=== PATIENT | male | born 1970 | race Caucasian/White ===

== ENCOUNTER 2024-04-24 13:01 | Day surgery (SDC) | payer OTHER, SELFPAY ==
[2024-04-24 13:05] VITALS: BP 140/95; PULSE 78; RESP 18; TEMP 36.3; O2SAT 97; BMI 31.7
--- NOTE | 2024-04-24 14:32 | HO.ANESPROP2 ---
HPI - Anesthesia Eval Consult details Narrative: 54 yo male patient for EGD with balloon dilatation PMFSH Active Problems Active Problems: Denies cardiac and respiratory problems Remote h/o smoking. Quit 30 yrs ago Past Medical History Medical History Kidney stones Chronic back pain History of deviated nasal septum Family History Family history of problems with anesthesia: No Surgical History Surgical History (Updated 04/24/24 @ 15:09 by Chelsie Prater MD) Status post correction of deviated nasal septum History of back surgery History of Problems with Anesthesia: No Social History Social History Patient Tobacco Use Status: Former Tobacco user Are you DNR?: No Advance Directives: No Advance Directives Information Provided: Yes Meds Allergies Allergy/AdvReac Type Severity Reaction Status Date / Time No Known Allergies Allergy Verified 04/24/24 13:19 Home Medications ?Medication ?Instructions ?Recorded ?Confirmed ?Last Taken ?Type celecoxib 200 mg capsule 200 mg PO DAILY 04/21/24 04/21/24 04/24/24 History cyclobenzaprine 5 mg tablet 5 mg PO TID PRN muscle spasm 04/21/24 04/21/24 04/24/24 History omeprazole 40 mg capsule,delayed 40 mg PO DAILY 04/24/24 04/24/24 04/24/24 History release Exam Height,Weight and Vital Signs: Height 6 ft 4 in Weight 118.115 kg Last Vital Signs Temp 97.3 F 04/24/24 13:05 Pulse 78 04/24/24 13:05 Resp 18 04/24/24 13:05 BP 140/95 H 04/24/24 13:05 Pulse Ox 97 04/24/24 13:05 O2 Del Method Room Air 04/24/24 13:05 Airway Mallampati Class: III TM Dist: >3cm Neck ROM: Full Loose/Missing/Broken Teeth: Yes (Missing tooth top right back) Heart: RRR Lungs: CTAB Assessment and Plan Assessment Anesthesia Assessment: Anesthesia Plan Discussed and Chart Reviewed Final Anesthetic Review Family History of Problems with Anesthesia: No History of Problems with Anesthesia: No NPO: Yes ASA Class: II Final Preanesthetic Review: No Changes in Pt Med Stat, Meds/Allgs Chart Reviewed, Consent Obtained/Reviewed and Anes Risks/Benef Reviewed Patient Risk: Low Procedure Risk: Low Assessment/Block/Sedation in SS: Assess/Block/Sedation-SS Anesthetic Plan Anesthetic Plan: TIVA Disposition: Standard PACU
[2024-04-24 15:39] VITALS: BP 111/64; PULSE 70; RESP 16; TEMP 36.1; O2SAT 96
--- NOTE | 2024-04-24 15:46 | P.BOP_ITS ---
Brief Operative Note Date of Service: 04/24/24 Pre-op diagnosis: Dysphagia, GERD Post-op diagnosis: other (Esophageal ring, Hiatal hernia) Procedure: EGD with 18mm to 19mm to 20mm balloon dilation, and biopsies Surgeon: Alejandro Mcgrath MD Anesthesia: MAC Was an Floral Artist used for this Procedure?: No Estimated blood loss (mL): 2.0 Pathology: other (A. EG Junction at 39cm) Condition: stable Disposition: PACU
[2024-04-24 15:54] VITALS: BP 135/80; PULSE 65; RESP 14; O2SAT 97
[2024-04-24 16:09] VITALS: BP 139/88; PULSE 70; RESP 15; TEMP 36.3; O2SAT 99
--- NOTE | 2024-04-25 02:38 | OP_ITS ---
DATE OF SERVICE: 04/24/2024 SURGEON: Alejandro Mcgrath MD INDICATIONS: The patient presents for evaluation of dysphagia, gastroesophageal reflux, and abnormal barium swallow. Full consent has been obtained from him for this, including risks of bleeding and perforation. PREOPERATIVE DIAGNOSIS: POSTOPERATIVE DIAGNOSIS: PROCEDURE PERFORMED: Esophagogastroduodenoscopy with balloon dilation of gastroesophageal junction, and biopsies. ESTIMATED BLOOD LOSS: COMPLICATIONS: ANESTHESIA: Monitored anesthesia care. ASSISTANTS: SPECIMENS: PREOPERATIVE DIAGNOSES: Gastroesophageal reflux, dysphagia, abnormal barium swallow. POSTOPERATIVE DIAGNOSES: Gastroesophageal reflux, dysphagia, abnormal barium swallow, nonobstructing distal esophageal ring, hiatal hernia, gastroesophageal reflux. DESCRIPTION OF PROCEDURE: The patient was placed in the left lateral decubitus position. The Olympus video gastroscope was passed in the posterior oropharynx and upper esophagus under direct vision. The scope was passed slowly into the distal esophagus. The gastroesophageal junction appeared at 39 cm. With insufflation of air, the gastroesophageal junction was widely patent and allowed easy passage of the scope. There did appear to be some minimal evidence of a nonobstructing esophageal ring at the level of the gastroesophageal junction. There was a small hiatal hernia. The scope was advanced to the pylorus, and the duodenum was cannulated to the descending portion. The duodenum including the bulb appeared normal without mass or ulceration. The scope was withdrawn back in the stomach. The gastric antrum and body appeared normal with good peristalsis. The scope was retroflexed visualizing the proximal stomach carefully, which appeared normal, without any sign of mass or ulceration. The scope was straightened and withdrawn back to the esophagus. I did use a [employer] incremental balloon to dilate the gastroesophageal junction from 18 mm to 19 mm to 20 mm at the recommended pressures for between 30 and 60 seconds each. The balloon itself pulled easily into and out of the stomach and there was no appreciable heme. After the dilation. I did obtain some biopsies from the EG junction as well. There was no evidence of esophagitis nor any definitive evidence of Horton mucosa. The scope was withdrawn through the remainder of the esophagus which appeared normal. There was no evidence of any proximal esophageal rings. The scope was withdrawn from the patient. He tolerated the procedure well and was returned to the recovery area in stable condition. IMPRESSION: 1. Nonobstructing distal esophageal ring, status post balloon dilation. 2. Hiatal hernia and gastroesophageal reflux. PLAN: The patient was started on omeprazole when I saw him at the end of May, and he does report that has definitely helped relieve his heartburn. He has been eating carefully, and at this point, I shall advise him to resume a normal diet and see how things are with that. I do suspect at least part of the trouble swallowing was in relation to reflux and esophageal spasm. He was advised to see me again toward the end of the year for a followup visit. At that point, we would then set up a followup screening colonoscopy. He did have a colonoscopy in [address] Marcano at [facility] with removal of only a hyperplastic polyp. However, he does have a family history of both the grandmother and uncle on his mother's side of the family with colon cancer, and his uncle was only approximately age 60. Therefore, we would proceed with a colonoscopy for screening later this year or next year rather than waiting 10 years. He was advised not to use any aspirin or NSAIDs for at least 1 week. This has been discussed with his . MD HELENA Garcia/GLORIA / [id number] MTDD
== END 2024-04-24 16:13 | disposition home or self-care (01) ==
PROVIDERS: PCP Nurse Practitioner Adult Health; Visit Provider Internal Medicine
PROC: (CPT 43245; principal; 2024-04-24 14:20)
DX: K22.2 Esophageal obstruction (principal); K44.9 Diaphragmatic hernia without obstruction or gangrene; K21.9 Gastro-esophageal reflux disease without esophagitis; R13.19 Other dysphagia; Z87.891 Personal history of nicotine dependence
CPT/HCPCS: 43245; 43239; 88305; 88313; C1726; J2704

== ENCOUNTER 2025-01-10 09:19 | Day surgery (SDC) | payer BC, SELFPAY ==
[2025-01-08 13:38] VITALS: BMI 32.5
--- NOTE | 2025-01-09 12:46 | HO.ANESPROP2 ---
Documented by User: Reva Pace NP 01/09/25 12:47 HPI - Anesthesia Eval Consult details Narrative: 54yo M for Colonoscopy s/p EGD 04/2024 with TIVA PMFSH Past Medical History Medical History Kidney stones Chronic back pain History of deviated nasal septum Family History Family history of problems with anesthesia: No Surgical History Surgical History H/O colonoscopy History of esophagogastroduodenoscopy (EGD) Status post correction of deviated nasal septum History of back surgery History of Problems with Anesthesia: No Social History Social History (Updated 01/08/25 @ 13:41 by Rhiannon Christian RN) Household Members: Spouse Do you presently have visiting nurse or other home services: No Patient Tobacco Use Status: Former Tobacco user Tobacco use type: Cigarette Use of substances other than those prescribed or required for medical reasons: No Have you been hit, kicked, punched, or otherwise hurt by someone within the past year? If so, by whom?: No Are you DNR?: No Advance Directives: No Advance Directives Information Provided: Yes Recently lost weight without trying: No Nutrition Risks: No Nutritional Risk Poor oral hygiene: No Meds Allergies Allergy/AdvReac Type Severity Reaction Status Date / Time No Known Allergies Allergy Verified 01/10/25 09:58 Home Medications ?Medication ?Instructions ?Recorded ?Confirmed ?Last Taken ?Type celecoxib 200 mg capsule 200 mg PO DAILY 04/21/24 01/08/25 04/24/24 History cyclobenzaprine 5 mg tablet 5 mg PO TID PRN muscle spasm 04/21/24 01/08/25 01/10/25 History omeprazole 40 mg capsule,delayed 40 mg PO DAILY 04/24/24 01/08/25 01/10/25 History release Exam Height,Weight and Vital Signs: Height 6 ft 3 in Weight 117.934 kg Assessment and Plan Assessment Anesthesia Assessment: Chart Reviewed Final Anesthetic Review Family History of Problems with Anesthesia: No History of Problems with Anesthesia: No Documented by User: Dean Delacruz MD 01/10/25 11:07 [facility] Past Medical History Medical History Kidney stones Chronic back pain History of deviated nasal septum Family History Family history of problems with anesthesia: No Surgical History Surgical History H/O colonoscopy History of esophagogastroduodenoscopy (EGD) Status post correction of deviated nasal septum History of back surgery History of Problems with Anesthesia: No Social History Social History (Updated 01/08/25 @ 13:41 by Rhiannon Christian RN) Household Members: Spouse Do you presently have visiting nurse or other home services: No Patient Tobacco Use Status: Former Tobacco user Tobacco use type: Cigarette Use of substances other than those prescribed or required for medical reasons: No Have you been hit, kicked, punched, or otherwise hurt by someone within the past year? If so, by whom?: No Are you DNR?: No Advance Directives: No Advance Directives Information Provided: Yes Recently lost weight without trying: No Nutrition Risks: No Nutritional Risk Poor oral hygiene: No Meds Allergies Allergy/AdvReac Type Severity Reaction Status Date / Time No Known Allergies Allergy Verified 01/10/25 09:58 Home Medications ?Medication ?Instructions ?Recorded ?Confirmed ?Last Taken ?Type celecoxib 200 mg capsule 200 mg PO DAILY 04/21/24 01/08/25 04/24/24 History cyclobenzaprine 5 mg tablet 5 mg PO TID PRN muscle spasm 04/21/24 01/08/25 01/10/25 History omeprazole 40 mg capsule,delayed 40 mg PO DAILY 04/24/24 01/08/25 01/10/25 History release Exam Airway Mallampati Class: II TM Dist: >3cm Neck ROM: Full Loose/Missing/Broken Teeth: No Heart: ok Lungs: ok Assessment and Plan Assessment Anesthesia Assessment: Anesthesia Plan Discussed Final Anesthetic Review Family History of Problems with Anesthesia: No History of Problems with Anesthesia: No NPO: Yes ASA Class: II Final Preanesthetic Review: No Changes in Pt Med Stat, Meds/Allgs Chart Reviewed, Consent Obtained/Reviewed and Anes Risks/Benef Reviewed Patient Risk: Intermediate Procedure Risk: Low Anesthetic Plan Anesthetic Plan: MAC: and Agree w/ Assess. and Plan Disposition: Standard PACU
[2025-01-10 09:59] VITALS: BP 126/84; PULSE 87; RESP 14; TEMP 36.7; O2SAT 95; BMI 31.4
[2025-01-10] MEDS: Lactated Ringers 1,000 ML 100 ML IVCONT (10:11)
[2025-01-10 11:39] VITALS: BP 122/62; PULSE 84; RESP 18; TEMP 36.9; O2SAT 95
--- NOTE | 2025-01-10 11:43 | PM.OP ---
Brief Operative Note Date of Service: 01/10/25 Pre-op diagnosis: Screening Post-op diagnosis: other (Diverticulosis) Procedure: Colonoscopy to the cecum and TI Surgeon: Alejandro Mcgrath MD Anesthesia: MAC Was an Emergency Doctor used for this Procedure?: No Estimated blood loss (mL): 0 Pathology: none sent Condition: stable Disposition: PACU
[2025-01-10 11:56] VITALS: BP 125/86; PULSE 77; RESP 16; TEMP 36.9; O2SAT 96
--- NOTE | 2025-01-10 12:16 | OP_ITS ---
DATE OF SERVICE: 01/10/2025 SURGEON: Alejandro Mcgrath MD INDICATIONS: The patient presents for evaluation of colorectal cancer screening and family history of colon cancer. Full consent has been obtained from him for this, including risks of bleeding and perforation. PREOPERATIVE DIAGNOSIS: POSTOPERATIVE DIAGNOSIS: PROCEDURE PERFORMED: Colonoscopy to the cecum and terminal ileum. ESTIMATED BLOOD LOSS: COMPLICATIONS: ANESTHESIA: Medication used, monitored anesthesia care. ASSISTANTS: SPECIMENS: PREOPERATIVE DIAGNOSES: Colorectal cancer screening and family history of colon cancer. POSTOPERATIVE DIAGNOSES: Colorectal cancer screening and family history of colon cancer, diverticulosis, and internal hemorrhoids. DESCRIPTION OF PROCEDURE: The patient was placed in the left lateral decubitus position. The digital rectal exam revealed no abnormalities. The Olympus video pediatric colonoscope was entered into the rectum and advanced easily to the cecum. Once in the cecum, I did identify normal-appearing cecal pouch with appendiceal orifice and a normal-appearing ileocecal valve. The terminal ileum was cannulated and appeared normal. Scope was withdrawn back in the colon. The entire cecum and ileocecal valve appeared normal. The scope was slowly withdrawn assessing all mucosal surfaces carefully. Preparation was excellent. I did not visualize any sign of polyps, colitis, nor angiodysplasia. There was a mild amount of sigmoid diverticulosis. In the rectum, scope was retroflexed visualizing internal hemorrhoids, but no other pathology. The rectal mucosa appeared normal. Scope was straightened and withdrawn from the patient. He tolerated the procedure well and was returned to the recovery area in stable condition. IMPRESSION: 1. Diverticulosis. 2. Internal hemorrhoids. PLAN: Given his family history of 2 relatives on the maternal side of the family with colon cancer, I did recommend a followup colonoscopy in 5 years for further screening. I did advise him to continue to use omeprazole for relief of his reflux and previous dysphagia. He does have a prescription for the 40 mg dose, and I did tell him the insurance should cover that, but he should call me if there are any problems obtaining that. MD HELENA Garcia/GLORIA / [id number]
== END 2025-01-10 12:42 | disposition home or self-care (01) ==
PROVIDERS: PCP Nurse Practitioner Adult Health; Visit Provider Internal Medicine
PROC: 0DJD8ZZ Inspection of Lower Intestinal Tract, Via Natural or Artificial Opening Endoscopic (ICD-10-PCS; CPT 45378; principal; 2025-01-10 10:50)
DX: Z12.11 Encounter for screening for malignant neoplasm of colon (principal); Z80.0 Family history of malignant neoplasm of digestive organs; K57.30 Diverticulosis of large intestine without perforation or abscess without bleeding; K64.8 Other hemorrhoids; K21.9 Gastro-esophageal reflux disease without esophagitis; R13.19 Other dysphagia; M54.9 Dorsalgia, unspecified; G89.29 Other chronic pain; N20.0 Calculus of kidney; Z79.899 Other long term (current) drug therapy
CPT/HCPCS: 45378; J2003; J2250; J2704